=== PATIENT | male | born 1935 | race Caucasian/White ===

== ENCOUNTER 2020-03-07 12:56 | Emergency (ER) | payer MEDICARE, BC ==
[~2020-03-07] VITALS: Ht 188 cm; Wt 104.5 kg
[~2020-03-07 12:56] MED LIST: ALLERGY10 M1 PO; ASPIRIN81 M1 OR; ATENOLOL25 MG PO; CHILD ASA81 MG PO; CIPRO500 MG PO; DEXILANT60 MG OR; FLAGYL500 MG PO; GLUCOSAMINE1500 COM OR; IBUPROFEN200 M1 OR; IBUPROFEN200 MG PO; LIPITOR10 M1 PO; METACMUCIL OR; METAMUCIL0.52 GM OR; METOPROLOL50 MG OR; MULTIVITAM10 PO; NAPROXEN500 MG PO; PROTONIX40 MG PO; SIMVASTATIN40 MG OR; SINEMET 10/1001 TA1 PO; TOBRAMYCIN0.3 % OU; ZOCOR40 MG OR
[2020-03-07 13:52] VITALS: BP 143/71
== END 2020-03-07 14:00 | disposition home or self-care (01) ==
LOC: ED 12:56
DX: S60.932A Unspecified superficial injury of left thumb, initial encounter (principal); W45.8XXA Other foreign body or object entering through skin, initial encounter; Y93.89 Activity, other specified